=== PATIENT | female | born 1985 | race Caucasian/White ===

== ENCOUNTER 2017-07-04 13:58 | Emergency (ER) | payer BC ==
--- NOTE | 2017-07-04 14:03 | EDM.PDOC ---
ED HPI GENERAL MEDICAL PROBLEM - General Chief Complaint: Headache Stated Complaint: MIGRAINE Time Seen by Provider: 07/04/17 14:03 Source of Information: Reports: Patient History Limitations: Reports: No Limitations - History of Present Illness INITIAL COMMENTS - FREE TEXT/NARRATIVE: HISTORY AND PHYSICAL: []31-year-old female with a three-year history of migraine headaches presents with a headache for the last 3 days. Sumatriptan has not helped. History of Present Illness: []Patient generally sees Dr. Gomez in [place] Patient has been placed on vitamin B and sumatriptan without any improvement Generally migraines occur 3-5 times per month Patient has never had CT scan. No family history of migraines. She is photophobic at this time. Nausea and vomiting Review of Systems: As per history of present illness and below otherwise all systems reviewed and negative. Past medical history: As per history of present illness and as reviewed below otherwise noncontributory. Surgical history: As per history of present illness and as reviewed below otherwise noncontributory. Social history: No reported history of drug or alcohol abuse. Family history: As per history of present illness and as reviewed below otherwise noncontributory. Physical exam: Alert female, answering questions appropriately, photophobic, nausea present. HEENT: Atraumatic, normocehpalic, pupils reactive, negative for conjunctival pallor or scleral icterus, mucous membranes moist, throat clear, neck supple, nontender, trachea midline. Pain noticed with light. Lungs: Clear to auscultation, breath sounds equal bilaterally, chest non tender. Heart: S1S2, regular, negative for clicks, rubs, or JVD. Abdomen: Soft, nondistended, nontender. Negative for masses or hepatossplenmegaly. Negative for costovertebral tenderness. Pelvis: Stable nontender. Genitourinary: Deferred. Rectal: Deferred Extremities: Atraumatic, negative for cords or calf pain. Neurovascular unremarkable. Neuro: Awake, alert, oriented. Cranial nerves II through XII unremarkable. Cerebellum unremarkable. Motor and sensory unremarkable throughout. Exam nonfocal. Patient is sleeping in the room when awakened she is groggy but headache has resolved. Discussed the CT scan being negative with her no signs of any gross abnormalities lesions or bleed. Diagnostics: [CT head] negative Therapeutics: [IV normal saline Benadryl IV Compazine Ativan] Impression: [Migraine headache] Plan: [Discharged to home and sleep Refer to Dr. Zamudio Return if symptoms worsen] Definitive disposition and diagnosis as appropriate pending reevaluation and review of above. Right Headache Pain Score (Numeric/FACES): 8 - Related Data Allergies Allergy/AdvReac Type Severity Reaction Status Date / Time No Known Allergies Allergy Verified 07/04/17 14:02 Home Meds: Home Meds Cyanocobalamin (Vitamin B12) [Vitamin B12] 07/04/17 [History] Estradiol 07/04/17 [History] Magnesium 07/04/17 [History] Migraine Medicine 07/04/17 [History] ED ROS GENERAL - Review of Systems Review Of Systems: ROS reveals no pertinent complaints other than HPI. - Physical Exam Exam: See Below (See dictation) Course - Vital Signs Last Recorded V/S: Last Vital Signs Temp 36.5 C 07/04/17 14:03 Pulse 85 07/04/17 14:03 Resp 16 07/04/17 14:03 BP 177/100 H 07/04/17 14:03 Pulse Ox 98 07/04/17 14:03 - Orders/Labs/Meds Meds: Medications Discontinued Medications Generic Name Dose Route Start Last Admin Trade Name Freq PRN Reason Stop Dose Admin Diphenhydramine HCl 25 mg 07/04/17 14:10 07/04/17 14:31 Benadryl IVPUSH 07/04/17 14:11 25 mg ONETIME ONE Administration Prochlorperazine Edisylate 10 52 mls @ 150 mls/hr 07/04/17 14:10 07/04/17 14: 58 mg/ Sodium Chloride IV 07/04/17 14:30 150 mls/hr ONETIME ONE Administration Sodium Chloride 1,000 mls @ 999 mls/hr 07/04/17 14:10 07/04/17 14:31 Normal Saline IV 07/04/17 15:10 999 mls/hr STAT ONE Administration Ketorolac Tromethamine 30 mg 07/04/17 14:10 07/04/17 14:31 Toradol IVPUSH 07/04/17 14:11 30 mg ONETIME ONE Administration Lorazepam 1 mg 07/04/17 14:10 07/04/17 14:33 Ativan IVPUSH 07/04/17 14:11 1 mg ONETIME ONE Administration Departure - Departure Time of Disposition: 16:10 Disposition: Home, Self-Care 01 Condition: Good Clinical Impression: Migraine - Discharge Information Instructions: Recurrent Migraine Headache, [id number] Referrals: PCP,None [Primary Care Provider] - Cadence Zamudio MD [Physician] - Forms: ED Department Discharge Additional Instructions: The following information is given to patients seen in the emergency department who are being discharged to home. This information is to outline your options for follow-up care. We provide all patients seen in our emergency department with a follow-up referral. The need for follow-up, as well as the timing and circumstances, are variable depending upon the specifics of your emergency department visit. If you don't have a primary care physician on staff, we will provide you with a referral. We always advise you to contact your personal physician following an emergency department visit to inform them of the circumstance of the visit and for follow-up with them and/or the need for any referrals to a consulting specialist. The emergency department will also refer you to a specialist when appropriate. This referral assures that you have the opportunity for followup care with a specialist. All of these measure are taken in an effort to provide you with optimal care, which includes your followup. Under all circumstances we always encourage you to contact your private physician who remains a resource for coordinating your care. When calling for followup care, please make the office aware that this follow-up is from your recent emergency room visit. If for any reason you are refused follow-up, please contact the [facility] emergency department at and asked to speak to the emergency department charge nurse. It is important that she sleep when you get home A referral has been made for you to see Dr. Cadence Zamudio [facility] [address] [place] [address], [address] [place] [address] Please call for an appointment follow-up with her
[2017-07-04] MEDS ORDERED: Sodium Chloride 0.9% 1,000 ML IV ONE (14:10)
[2017-07-04] MEDS ORDERED: LORazepam 2 MG/ML MDV IVPUSH ONE (14:10)
[2017-07-04] MEDS ORDERED: Prochlorperazine 10 MG in Sodium Chloride 0.9% 50 ML IV ONE (14:10)
[2017-07-04] MEDS ORDERED: diphenhydrAMINE 50 MG/ML SDV IVPUSH ONE (14:10)
[2017-07-04] MEDS ORDERED: Ketorolac 30 MG/ML SDV IVPUSH ONE (14:10)
--- NOTE | 2017-07-04 15:57 | CT ---
EXAMINATION: Non contrast CT head. Coronal and sagittal reformats. HISTORY: Pain FINDINGS: No evidence of intra or extra axial hemorrhage, mass, midline shift, hydrocephalus or edema. No hypoattenuation changes in the major vascular territories to suggest acute infarct. No abnormal intracranial calcifications are detected. No evidence of substantial vascular calcificat ions. Paranasal sinuses and mastoid air cells are well aerated without substantial findings. Orbits and gl obes are symmetric. Pituitary fossa appears unremarkable. Calvarium is intact. No evidence of skull fracture. IMPRESSION: No acute intracranial findings.
[2017-07-04 16:23] VITALS: BP 140/84
== END 2017-07-04 16:22 | disposition home or self-care (01) ==
LOC: MW.ED 13:58
DX: G43.909 Migraine, unspecified, not intractable, without status migrainosus (principal)
CPT/HCPCS: 70450; 96361; 96365; 96375; 99284; J0780; J1200; J1885; J2060; J7040; J7050; 99282